=== PATIENT | female | born 1995 | race African-American/Black ===

== ENCOUNTER 2025-02-20 14:59 | Inpatient (IN) | payer MEDICAID ==
[2025-02-20] VITALS: BP 124/86; PULSE 86; RESP 18; TEMP 37.2; O2SAT 98
[~2025-02-20] VITALS: Ht 165.1 cm; Wt 108.0 kg
[~2025-02-20 14:59] MED LIST: CEPH500C2 MT
[2025-02-20 15:14] VITALS: O2SAT 100
[2025-02-20 16:04] LABS: BASOPHILS % 0.2 % (0.0-2.0); EOSINOPHILS % 0.2 % (0.0-5.0); LYMPHOCYTES % 9.3 % (20.0-50.0); MEAN PLATELET VOLUME 9.6 fl (7.4-10.4); MONOCYTES % 4.8 % (2.0-8.0); NEUTROPHILS % 85.5 % (40.0-76.0); PLATELET 252 x1000/uL (130-400); RED BLOOD CELL COUNT 2.88 mill/uL (4.2-5.4); RED CELL DISTRIBUTION WIDTH 17.9 % (11.6-14.6)
[2025-02-20 16:08] LABS: HEMATOCRIT. 20.7 % (36.0-48.0); HEMOGLOBIN. 6.2 g/dL (12.0-16.0)
[2025-02-20 16:37] LABS: HCG SCREEN NEGATIVE
[2025-02-20 17:39] LABS: CREATININE 0.7 mg/dL (0.6-1.0); UREA NITROGEN BLOOD 11 mg/dL (9-23)
[2025-02-20 17:46] LABS: INR 1.0
[2025-02-20 21:30] VITALS: BP 133/80; PULSE 83; RESP 16; TEMP 38.0304
[2025-02-21] VITALS: BP 124/86; PULSE 86; RESP 18; TEMP 37.2; O2SAT 98
[2025-02-21] MEDS ORDERED: NALOXONE HCL 0.4MG/ML VIAL IV PRN (02:00)
[2025-02-21] MEDS: SODIUM CHLORIDE 0.9% 1,000 ML IV SCH (02:36)
[2025-02-21 04:00] VITALS: BP 112/69; RESP 17; TEMP 36.7; O2SAT 99
[2025-02-21 12:00] VITALS: BP 118/79; RESP 14; O2SAT 99
[2025-02-21 13:20] LABS: BASOPHILS % 0.3 % (0.0-2.0); EOSINOPHILS % 1.5 % (0.0-5.0); HEMATOCRIT. 23.3 % (36.0-48.0); HEMOGLOBIN. 7.4 g/dL (12.0-16.0); LYMPHOCYTES % 15.9 % (20.0-50.0); MEAN PLATELET VOLUME 9.0 fl (7.4-10.4); MONOCYTES % 5.6 % (2.0-8.0); NEUTROPHILS % 76.7 % (40.0-76.0); PLATELET 221 x1000/uL (130-400); RED BLOOD CELL COUNT 3.19 mill/uL (4.2-5.4); RED CELL DISTRIBUTION WIDTH 18.3 % (11.6-14.6)
[2025-02-21 16:00] VITALS: BP 123/75; PULSE 81; RESP 18; TEMP 36.5; O2SAT 100
[2025-02-21] MEDS: ACETAMINOPHEN WITH CODEINE 300/30MG TABLET PO PRN (18:41)
[2025-02-21 20:00] VITALS: BP 122/79; PULSE 74; RESP 18; TEMP 36.5; O2SAT 100
[2025-02-22] VITALS: BP 125/78; PULSE 71; RESP 18; TEMP 36.7; O2SAT 100
[2025-02-22 04:00] VITALS: BP 104/78; PULSE 73; RESP 18; TEMP 36.4; O2SAT 95
[2025-02-22 08:00] VITALS: BP 119/76; PULSE 74; RESP 18; TEMP 36.8; O2SAT 98
[2025-02-22] MEDS: TRANEXAMIC ACID 1000MG PREMIX 100 ML IV SCH (14:58)
[2025-02-22 16:00] VITALS: BP 103/65; PULSE 66; RESP 16; TEMP 36; O2SAT 99
[2025-02-22 20:00] VITALS: BP 124/85; PULSE 105; RESP 17; TEMP 36.6; O2SAT 99
[2025-02-22 21:45] LABS: BASOPHILS % 0.5 % (0.0-2.0); EOSINOPHILS % 1.8 % (0.0-5.0); HEMATOCRIT. 24.8 % (36.0-48.0); HEMOGLOBIN. 7.6 g/dL (12.0-16.0); LYMPHOCYTES % 26.0 % (20.0-50.0); MEAN PLATELET VOLUME 9.6 fl (7.4-10.4); MONOCYTES % 7.0 % (2.0-8.0); NEUTROPHILS % 64.7 % (40.0-76.0); PLATELET 255 x1000/uL (130-400); RED BLOOD CELL COUNT 3.37 mill/uL (4.2-5.4); RED CELL DISTRIBUTION WIDTH 18.4 % (11.6-14.6)
[2025-02-23] VITALS: BP 118/68; PULSE 89; RESP 18; TEMP 36.2; O2SAT 100
[2025-02-23 04:00] VITALS: BP 110/63; PULSE 73; RESP 18; TEMP 36.1; O2SAT 100
[2025-02-23 08:00] VITALS: BP 94/64; PULSE 68; RESP 18; TEMP 36.7; O2SAT 100
[2025-02-23 12:00] VITALS: BP 134/83; PULSE 80; RESP 17; TEMP 36.7; O2SAT 100
[2025-02-23] MEDS ORDERED: TRANEXAMIC ACID 1,000MG/10ML IV ONE (12:30)
[2025-02-23] MEDS: TRANEXAMIC ACID 1000MG PREMIX 100 ML IV NR (14:28)
[2025-02-23 16:00] VITALS: BP 98/61; PULSE 75; RESP 17; TEMP 36.6; O2SAT 99
[2025-02-23 20:00] VITALS: BP 108/69; PULSE 70; RESP 18; TEMP 36.4; O2SAT 98
== END 2025-02-23 22:41 | disposition home or self-care (01) | DRG 532 ==
LOC: ER 14:59 → 7EST 19:44 → EDBEDREQ 19:46 → EDBEDREQTM 19:46
PROVIDERS: ADMIT Obstetrics & Gynecology; ATTEND Obstetrics & Gynecology
DX: N93.9 Abnormal uterine and vaginal bleeding, unspecified (principal)
CPT/HCPCS: 36415; 36430; 76830; 76856; 80048; 84702; 84703; 85025; 86850; 86900; 86920; 99285; J7030; P9016